=== PATIENT | male | born 1960 | race Caucasian/White ===

== ENCOUNTER 2017-03-19 12:12 | Outpatient (CLI) | payer OTHER ==
--- NOTE | 2017-03-22 15:51 | DIAGNOSTIC IMAGING REPORT ---
REFERRING PHYSICIAN/PROVIDER: Gerard Christine MD [employer]ING [employer]: Abhinav Leslie MD PROCEDURE PERFORMED: NM CARDIAC STRESS TEST INDICATION: NEAR SYNCOPE Stress PORTION: Please see Dr. Gonzales's dictation 1 day SESTAMIBI INTERPRETATION: 10 mCi of technetium 99m labeled sestamibi was injected at rest with SPECT tomography performed. Some time later the patient underwent treadmill stress with 32 mCi of technetium 99m labeled sestamibi injected at peak exercise. Rest stress images were then compared than SPECT tomography was performed. The LV was seen to be normal in size. The LV was stressed exhibits no ischemic defects. Computer assessed ejection fraction was 61% with normal contraction. IMPRESSION: 1. No evidence for ischemia 2. Normal left ventricular size 3. Normal left ventricular function 4. Low risk study
--- NOTE | 2017-03-22 15:51 | DIAGNOSTIC IMAGING REPORT ---
REFERRING PHYSICIAN/PROVIDER: Gerard Christine MD CONSULTING VEHICLE REFINISHER: Abhinav Leslie MD PROCEDURE PERFORMED: NM CARDIAC STRESS TEST INDICATION: NEAR SYNCOPE Stress PORTION: Please see Dr. Gonzales's dictation 1 day SESTAMIBI INTERPRETATION: 10 mCi of technetium 99m labeled sestamibi was injected at rest with SPECT tomography performed. Some time later the patient underwent treadmill stress with 32 mCi of technetium 99m labeled sestamibi injected at peak exercise. Rest stress images were then compared than SPECT tomography was performed. The LV was seen to be normal in size. The LV was stressed exhibits no ischemic defects. Computer assessed ejection fraction was 61% with normal contraction. IMPRESSION: 1. No evidence for ischemia 2. Normal left ventricular size 3. Normal left ventricular function 4. Low risk study
== END 2017-03-19 23:00 ==
LOC: NM SRH 12:12
PROC: 4A02XM4 Measurement of Cardiac Total Activity, External Approach (ICD-10-PCS; principal; 2017-03-19)
DX: R55 Syncope and collapse (principal)